=== PATIENT | male | born 1970 | race Caucasian/White ===

== ENCOUNTER 2016-10-04 14:23 | Emergency (ER) | payer OTHER ==
[~2016-10-04 14:23] MED LIST: ALBUAER19 INH; ALBUAER9; ALLGUNK PO; SNG10 PO
[2016-10-04 14:28] VITALS: TEMP 37; Ht 182.9 cm
[2016-10-04] MEDS ORDERED: MoRPHine SULFATE 4 MG/ML 1 ML CARP\\VIAL IV STA (15:39)
[2016-10-04] MEDS ORDERED: KETOROLAC TROMETHAMINE 30 MG/ML VIAL IV STA (15:39)
[2016-10-04] MEDS ORDERED: ONDANSETRON INJ 2 MG/ML 2 ML VIAL IV STA (15:39)
--- NOTE | 2016-10-04 15:45 | EMERGENCY ROOM VISIT NOTE ---
History Report prepared by Álvaro: Coni Lopez Under the Supervision of: Dr. Syed Patrick M.D. First contact with patient: 15:32 Chief Complaint: BACK PAIN Stated Complaint: LOWER BACK PAIN, DIFFICULTY BREATHING History of Present Illness The patient is a 45 year old male who presents to the Emergency Room with complaints of persistent left lower back pain that began one week ago. He currently rates his discomfort as a 10/10 in severity. The patient states that last week he was lifting his 100 pound dog when he felt a pop in his back. He denies any fall. The patient states that he sees a chiropractor once a month, noting that he has thrown his back out in the past. He states that he went to see his chiropractor this week to have his back adjusted. The patient states that his pain has been worsening. He states that his pain is worsened with movement and states that it is alleviated with lying still. The patient denies any numbness or weakness, loss of control of his bowel or bladder, chest pain, or chills. The patient notes that he has had a recent cough, has been short of breath, diaphoretic, and a subjective fever. He states that he has a history of asthma and additionally notes that his lungs only have 30% of capacity. The patient states that he has tried taking Aleve without relief of his symptoms. He states that he took one of his 's Morphine pills this morning at 0700. Source of History: patient, spouse/significant other Onset: one week ago Position: back (lower, left) Symptom Intensity: 10/10 Quality: other (pop) Timing: other (persistent) Modifying Factors (Worsening): movement Modifying Factors (Relieving): other (lying flat) Associated Symptoms: + SOB, + cough, + diaphoresis, + fevers, No chest pain , No chills, No numbness, No weakness Review of Systems See HPI for pertinent positives & negatives. A total of 10 systems reviewed and were otherwise negative. Past Medical & Surgical Medical Problems: (1) Anaphylaxis (2) Asthma (3) Hypertension Old medical records were reviewed. Nurse's notes were reviewed and I agree with. Family History Cancer Social History Smoking Status: Never Smoker Alcohol Use: occasionally Drug Use: none Marital Status: Housing Status: lives with family Occupation Status: employed Current/Historical Medications Scheduled Albuterol Inhaler (Ventolin Inhaler), 2 PUFFS INH QID PRN Albuterol Sulfate (Proventil Hfa), PRN Epinephrine (Epipen), 0.3 MG IM UD Fexofenadine Hcl (Aracelis Unknown Dose), 1 TAB PO DAILY Fluticasone Prop/Salmeterol (Advair Diskus 500/50 60 Dose), 1 PUFF INH BID Levofloxacin (Levaquin), 500 MG PO DAILY Lisinopril (Zestril), 10 MG PO DAILY Montelukast (Singulair *), 10 MG PO DAILY Omeprazole (Prilosec), 20 MG PO DAILY Prednisone (Prednisone), 50 MG PO DAILY Tiotropium [place] (Spiriva Handihaler), 1 CAP INH DAILY Scheduled PRN Oxycodone Ir (Roxicodone Ir), 1-2 TAB PO Q4H PRN for Severe Pain Allergies Coded Allergies: Penicillins (Verified Allergy, Unknown, THROAT SWELLS, 10/04/16) Physical Exam Vital Signs Date Time Temp Pulse Resp B/P Pulse Ox O2 Delivery O2 Flow Rate FiO2 10/04/16 18:42 105/70 10/04/16 17:56 109/77 10/04/16 16:06 93 Nasal Cannula 2.0 10/04/16 16:02 79 18 133/87 88 Room Air 10/04/16 14:28 37.0 64 20 124/80 100 Room Air Physical Exam General: Well developed well nourished, non-ill appearing middle aged male, in no acute distress, breathing comfortably on room air. Normal speech. Significant pain when tries to move back, otherwise appears comfortable. HEENT: Normal cephalic atraumatic. Pupils are equal round and reactive to light. Extraocular movements are intact. Oropharynx is pink with moist mucous membranes. No swelling of the mouth lips or tongue. Neck: Supple with a midline trachea. No meningeal signs or stiffness, no JVD or bruits. No Stridor. Chest: Clear to auscultation bilaterally. No wheezes or rhonchi. No increased work of breathing. Heart: regular rate and rhythm. Abdomen: Soft nontender, nondistended without rebound guarding or rigidity. Extremities: No cyanosis clubbing or edema. No calf tenderness or assymetry Spine/Back. Tender along left lower back along SI joint. No CVA tenderness Skin: Good turgor without rashes. Neurologic exam: Normal motor, sensation, and reflexes distally. Cranial nerves two through 12 are intact. Motor and sensation are intact and symmetrical throughout. Medical Decision & Procedures ER Provider Diagnostic Interpretation: X-ray results as stated below per interpretation by me and the radiologist: CHEST ONE VIEW PORTABLE CLINICAL HISTORY: CHEST PAIN dyspnea COMPARISON STUDY: No previous studies for comparison. FINDINGS: Small parenchymal infiltrate medial right base. Lungs otherwise appear clear. Diaphragms smooth. IMPRESSION: Small parenchymal infiltrate medial right base Electronically signed by: Jaun Gonzalez M.D. 10/04/2016 4:17 PM Dictated Date/Time: 10/04/2016 4:17 PM Laboratory Results Test 10/04/16 16:30 Urine Color DK YELLOW Urine Appearance CLOUDY (CLEAR) Urine pH 6.5 (4.5-7.5) Urine Specific [place] 1.025 (1.000-1.030) Urine Protein NEG (NEG) Urine Glucose (UA) NEG (NEG) Urine Ketones NEG (NEG) Urine Occult Blood NEG (NEG) Urine Nitrite NEG (NEG) Urine Bilirubin NEG (NEG) Urine Urobilinogen NEG (NEG) Urine Leukocyte Esterase NEG (NEG) Urine WBC (Auto) 5-10 /hpf (0-5) Urine RBC (Auto) 0-4 /hpf (0-4) Urine Hyaline Casts (Auto) 1-5 /lpf (0-5) Urine Epithelial Cells (Auto) >30 /lpf (0-5) Urine Bacteria (Auto) NEG (NEG) Urine Renal Epithelial Cells /lpf (0-5) Urine Pathogenic Casts /lpf (0) Urine Mucus PRESENT (NONE PRSENT) Laboratory studies as stated above per my review. Medications Administered Medications (Trade) Dose Ordered Sig/Jorgito Route Start Time Stop Time Status Last Admin Dose Admin Ketorolac Tromethamine (Toradol Inj) 30 mg NOW STAT IV 10/04/16 15:39 10/04/16 15:41 DC 10/04/16 15:58 30 MG Morphine Sulfate (MoRPHine SULFATE INJ) 4 mg NOW STAT IV 10/04/16 15:39 10/04/16 15:41 DC 10/04/16 15:58 4 MG Ondansetron HCl (Zofran Inj) 4 mg NOW STAT IV 10/04/16 15:39 10/04/16 15:41 DC 10/04/16 15:58 4 MG Levofloxacin (Levaquin Tab) 500 mg NOW STAT PO 10/04/16 18:17 10/04/16 18:19 DC 10/04/16 18:34 500 MG Prednisone (PredniSONE TAB) 60 mg NOW STAT PO 10/04/16 18:17 10/04/16 18:19 DC 10/04/16 18:35 60 MG Oxycodone HCl (Roxicodone Immediate Rel 5MG Home Pack) 1 homepack UD ONCE PO 10/04/16 18:30 10/04/16 18:31 DC 10/04/16 18:35 1 HOMEPACK ED Course 153: Past medical records reviewed. The patient was evaluated in room A12B, and a complete history and physical examination were performed. 1538: Ordered Zofran Inj 4 mg IV, Morphine Sulfate 4 mg IV, Toradol Inj 30 mg IV. 1816: I reevaluated the patient and he is feeling much better. I discussed the exam findings with him and I discussed the treatment plan. He verbalized complete understanding and agreement. He is ready to go home. Ordered Prednisone 60 mg PO, Levofloxacin 500 mg PO. 1829: Ordered Oxycodone HCl 1 homepack PO. Medical Decision Differentials include, but are not limited to; musculoskeletal back pain, UTI, pneumonia, cauda equina syndrome This patient comes in as described above. He's having low back pain which is worse with movement. This happened after he picked up his dog. There was no direct trauma. He has no numbness weakness or anything to suggest cauda equina syndrome or infection. He does have a history of chronic lung problems and has had a cough but no fever. He looks well on exam except when he tries to move his lateral low back pain. Urinalysis nor do his symptoms suggest UTI or pyelonephritis. Chest x-ray shows a possible infiltrate in the base and given the fact that he's had a cough, I will put him on Levaquin. He's had this before without any problems. He was given IV morphine and IV Zofran as well as IV Toradol while he was here. He is feeling much better was able to ambulate without difficulty. I gave him prednisone 60 mg by mouth here he'll take prednisone for the next couple days 50 mg for 4 days. He will use ibuprofen for pain for breakthrough pain, he can use OxyIR 5 mg was warned that this could make him drowsy and do not take before drinking, driving, working. He should return if: increasing pain, worsening of symptoms, shortness of breath, change in bowel or bladder function, any new problems concerns and was encouraged to follow-up with his regular doctor next 1-2 days for recheck. Impression Primary Impression: Lower back pain Additional Impressions: Muscle spasm Bronchitis Scribe Attestation The scribe's documentation has been prepared under my direction and personally reviewed by me in its entirety. I confirm that the note above accurately reflects all work, treatment, procedures, and medical decision making performed by me. Departure Information Dispostion Home / Self-Care Prescriptions Oxycodone Ir (Roxicodone Ir) 5 Mg Tab 1-2 TAB PO Q4H Y for Severe Pain, #15 TAB Prov: Syed Patrick M.D. 10/04/16 Levofloxacin (Levaquin) 500 Mg Tab 500 MG PO DAILY, #7 TAB Prov: Syed Patrick M.D. 10/04/16 Prednisone (Prednisone) 50 Mg Tab 50 MG PO DAILY, #4 TAB Prov: Syed Patrick M.D. 10/04/16 Referrals Jarred Cota M.D. (PCP) Forms HOME CARE DOCUMENTATION FORM, IMPORTANT VISIT INFORMATION Patient Instructions My [facility] Additional Instructions Rest. Drink plenty of fluids. Use prednisone 50 mg a day for the next 4 days Use Levaquin 500 mg a day for the next 7 daysantibiotic For more severe pain, may use OxyIR 5 mg, one or 2 pills every 4-6 hours as needed OxyIR may make you drowsy- do not take before drinking, driving, working Return if: Increasing pain, worsening of symptoms, fever or chills, change in bowel or bladder function, numbness weakness, any new problems. Problem Qualifiers
[2016-10-04 16:02] VITALS: PULSE 79; O2SAT 88
[2016-10-04 16:06] VITALS: O2SAT 93
--- NOTE | 2016-10-04 16:19 | DIAGNOSTIC IMAGING REPORT ---
CHEST ONE VIEW PORTABLE CLINICAL HISTORY: CHEST PAIN dyspnea COMPARISON STUDY: No previous studies for comparison. FINDINGS: Small parenchymal infiltrate medial right base. Lungs otherwise appear clear. Diaphragms smooth. IMPRESSION: Small parenchymal infiltrate medial right base Electronically signed by: Jaun Gonzalez M.D. 10/04/2016 4:17 PM Dictated Date/Time: 10/04/2016 4:17 PM
[2016-10-04 16:51] LABS: URINE APPEARANCE CLOUDY (CLEAR); URINE COLOR DK YELLOW; URINE EPITHELIAL CELL AUTO >30 /lpf (0-5); URINE NITRITE NEG (NEG); URINE PH 6.5 (4.5-7.5); URINE SPECIFIC GRAVITY 1.025 (1.000-1.030); UROBILINOGEN NEG (NEG)
[2016-10-04 16:56] LABS: MANUAL MICROSCOPIC REQUIRED? NO; REVIEW REQ? YES; URINE BILIRUBIN NEG (NEG)
[2016-10-04 17:22] LABS: URINE MUCUS PRESENT (NONE PRSENT)
[2016-10-04] MEDS ORDERED: LEVOFLOXACIN 500 MG TAB PO STA (18:17)
[2016-10-04] MEDS ORDERED: LEVO-366 PO (18:21)
[2016-10-04] MEDS ORDERED: OXYC1TAB3 PO (18:21)
[2016-10-04] MEDS ORDERED: PRED50TA PO (18:21)
[2016-10-04] MEDS ORDERED: OXYCODONE IR HOME PACK PO ONE (18:30)
[2016-10-04 18:42] VITALS: BP 105/70
--- NOTE | 2016-10-06 14:27 | Pharmacy Progress Note ---
ED Pharmacist Culture FollowUp Date of Service: Oct 06, 2016. Gardnerella growing from urine culture. Not likely true infection. No intervention required. Case discussed with Dr. Talavera.
[2016-11-23] MEDS ORDERED: EPP3/2 IM (12:36)
[2016-11-23] MEDS ORDERED: FEXO1TAB46 PO (19:32)
[2016-11-23] MEDS ORDERED: ALBU18002 INH (19:32)
[2016-11-23] MEDS ORDERED: MONT1TAB3 PO (19:32)
== END 2016-10-04 18:44 | disposition home or self-care (01) ==
LOC: C.EDB 14:25 → C.EDA 18:44
DX: M54.5 Low back pain (principal); M62.830 Muscle spasm of back; J40 Bronchitis, not specified as acute or chronic; J45.909 Unspecified asthma, uncomplicated; I10 Essential (primary) hypertension; Z79.899 Other long term (current) drug therapy; Z88.0 Allergy status to penicillin

== ENCOUNTER 2016-10-07 19:01 | Emergency (ER) | payer OTHER ==
[~2016-10-07] VITALS: Ht 182.9 cm; Wt 89.0 kg
[~2016-10-07 19:01] MED LIST changes: +LEVO-366 PO; +OXYC1TAB3 PO; +PRED50TA PO
[2016-10-07 19:04] VITALS: TEMP 37.4; Ht 182.9 cm; Wt 89.0 kg
[2016-10-07] MEDS ORDERED: PROMETHAZINE HCL INJ 6.25 MG in SODIUM CHLORIDE 0.9% 50ML 50 ML IV STA (19:11)
[2016-10-07] MEDS ORDERED: CYCLOBENZAPRINE HCL 10 MG TAB PO STA (19:11)
[2016-10-07] MEDS ORDERED: MoRPHine SULFATE 10 MG/ML CARP/VIAL IV STA (19:11)
[2016-10-07] MEDS ORDERED: KETOROLAC TROMETHAMINE 30 MG/ML VIAL IV STA (19:11)
[2016-10-07] MEDS ORDERED: SODIUM CHLORIDE 0.9% 500ML 500 ML IV STA (19:11)
[2016-10-07] MEDS ORDERED: ALBUT/IPRATROP 3MG/0.5MG NEB 3 ML VIAL INH STA (19:15)
[2016-10-07] MEDS ORDERED: MoRPHine SULFATE 4 MG/ML 1 ML CARP\\VIAL ONE (19:18)
[2016-10-07] MEDS ORDERED: MoRPHine SULFATE 2 MG/ML CARP ONE (19:19)
[2016-10-07] MEDS ORDERED: PRED10TA PO (19:32)
[2016-10-07 19:46] LABS: BASO % 0.1 %; BASO ABS # 0.01 K/uL (0-0.2); COMPLETE YES; IG% 0.6 %; LYMPH % 9.7 %; MEAN CELL VOLUME 89.6 fL (80-100); MEAN CORPUSCULAR HEMOGLOBIN 30.1 pg (25-34); MEAN CORPUSCULAR HGB CONC 33.6 g/dl (32-36); MONO % 4.5 %; NEUT % 85.1 %; PLATELET COUNT 331 K/uL (130-400); RED BLOOD COUNT 4.91 M/uL (4.7-6.1); WHITE BLOOD COUNT 10.31 K/uL (4.8-10.8)
--- NOTE | 2016-10-07 19:50 | EMERGENCY ROOM VISIT NOTE ---
History Report prepared by Álvaro: Trent Tariq Under the Supervision of: Dr. Suleiman Cesar M.D. First contact with patient: 19:07 Chief Complaint: BACK PAIN Stated Complaint: BACK PAIN History of Present Illness The patient is a 45 year old male who presents to the Emergency Room with complaints of persistent lower back pain starting a few weeks ago. He describes it to be a tightness. He has worsening pain with movement and bending over. He was doing some heavy lifting when he had the onset of his pain. He had some relief after he had some work performed at the chiropractor's office. He was evaluated in the Emergency Room 3 days ago for similar complaints. He was diagnosed with muscle spasms and pneumonia. The patient was discharged home. He has been taking Prednisone and Levaquin as prescribed. He has been taking Oxycodone without relief in his back pain. He denies any recent falls, urinary symptoms, numbness, tingling, or any other complaints. Source of History: patient Onset: a few weeks ago Position: back (lower) Quality: other (tightness) Timing: other (persistent) Modifying Factors (Worsening): movement, other (bending over) Modifying Factors (Relieving): other (Oxycodone without relief) Associated Symptoms: No numbness, No urinary symptoms Review of Systems See HPI for pertinent positives & negatives. A total of 10 systems reviewed and were otherwise negative. Past Medical & Surgical Medical Problems: (1) Anaphylaxis (2) Asthma (3) Hypertension Family History Cancer Social History Smoking Status: Never Smoker Alcohol Use: occasionally Drug Use: none Marital Status: Housing Status: lives with family Occupation Status: employed Current/Historical Medications Scheduled Albuterol Sulfate (Proair [place]), 2 PUFFS INH QID Fexofenadine Hcl (Aracelis), 180 MG PO HS Fluticasone Prop/Salmeterol (Advair Diskus 500/50 60 Dose), 1 PUFF INH BID Levofloxacin (Levaquin), 500 MG PO DAILY Lisinopril (Zestril), 10 MG PO DAILY Montelukast Sodium (Singulair), 10 MG PO HS Omeprazole (Prilosec), 20 MG PO DAILY Prednisone (Prednisone), 50 MG PO DAILY Prednisone Tab (Prednisone), 10 MG PO DAILY Tiotropium [place] (Spiriva Handihaler), 1 CAP INH DAILY Scheduled PRN Cyclobenzaprine Hcl (Flexeril), 10 MG PO TID PRN for Muscle Spasms Epinephrine (Epipen), 0.3 MG IM UD PRN for ALLERGIC REACTION Oxycodone Ir (Roxicodone Ir), 1-2 TAB PO Q4H PRN for Pain Allergies Coded Allergies: Chicken Meat (Verified Allergy, Severe, ANAPHYLAXIS, 10/07/16) Penicillins (Verified Allergy, Unknown, THROAT SWELLS, 10/04/16) Uncoded Allergies: TURKEY (Allergy, Severe, ANAPHYLAXIS, 10/07/16) Physical Exam Vital Signs Date Time Temp Pulse Resp B/P Pulse Ox O2 Delivery O2 Flow Rate FiO2 10/07/16 19:04 37.4 88 18 128/85 99 Room Air Physical Exam GENERAL: Patient is in no acute distress. HEENT: No acute trauma, normocephalic atraumatic, mucous membranes moist, no nasal congestion, no scleral icterus. NECK: No stridor, no adenopathy, no meningismus, trachea is midline. LUNGS: Decreased breath sounds bilaterally with scattered wheezes bilaterally, equal breath sounds, no crackles. HEART: Without murmurs gallops or rubs, regular rate and rhythm. ABDOMEN: Soft, nontender, bowel sounds positive, no hernias, no peritonitis. BACK: Tenderness in the area of the left lumbar musculature--muscles on the left seem to have spasm, no midline or bony step off, pain worsens with movement. EXTREMITIES: No cyanosis or edema, full range of motion of all the joints without pain or difficulty, no signs for acute trauma. NEUROLOGIC: Oriented x 3, no acute motor or sensory deficits, no focal weakness. SKIN: No rash, no jaundice, no diaphoresis. Medical Decision & Procedures ER Provider Diagnostic Interpretation: CT results as stated below per my review and radiologist interpretation: LUMBAR SPINE CT CT DOSE: 613.71 mGy.cm HISTORY: lower back pain TECHNIQUE: Multiaxial CT images of the lumbar spine were performed and reformatted in the sagittal and coronal plane without the use of contrast. COMPARISON: None. FINDINGS: Moderate to severe anterior wedge-shaped compression fracture within the L1 vertebral body. This demonstrates up to 75% loss of height centrally. No significant retropulsion. Anterior protrusion of the anterior cortex measures up to 5 mm. This abuts the adjacent IVC. This may be acute to subacute due to the mild paravertebral edema. There is also a mild to moderate superior endplate compression fracture at L4 demonstrating up to 40% loss of height anteriorly. No associated paravertebral edema. Therefore, this favors an old fracture. No associated retropulsion. The sacrum appears intact. Disc spaces are preserved. Mild facet degenerative changes seen within the mid to lower lumbar spine. Moderate central canal narrowing at L3-L4 and L4-L5 due to the disc bulge and facet hypertrophy. IMPRESSION: 1. Moderate to severe anterior wedge-shaped compression fracture at L1 which is likely acute to subacute. No associated retropulsion. 2. Mild to moderate superior endplate compression fracture at L4 which is likely old. 3. Degenerative changes as described above. Electronically signed by: Jett Borrero M.D. 10/07/2016 8:26 PM Dictated Date/Time: 10/07/2016 8:19 PM Laboratory Results 10/07/16 19:30 Red Blood Count 4.91, Mean Corpuscular Volume 89.6, Mean Corpuscular Hemoglobin 30.1, Mean Corpuscular Hemoglobin Concent 33.6, Mean Platelet Volume 9.0, Neutrophils (%) (Auto) 85.1, Lymphocytes (%) (Auto) 9.7, Monocytes (%) (Auto) 4.5, Eosinophils (%) (Auto) 0.0, Basophils (%) (Auto) 0.1, Neutrophils # (Auto) 8.78, Lymphocytes # (Auto) 1.00, Monocytes # (Auto) 0.46, Eosinophils # (Auto) 0.00, Basophils # (Auto) 0.01 10/07/16 19:30 Test 10/07/16 19:30 White Blood Count 10.31 K/uL (4.8-10.8) Red Blood Count 4.91 M/uL (4.7-6.1) Hemoglobin 14.8 g/dL (14.0-18.0) Hematocrit 44.0 % (42-52) Mean Corpuscular Volume 89.6 fL (80-100) Mean Corpuscular Hemoglobin 30.1 pg (25-34) Mean Corpuscular Hemoglobin Concent 33.6 g/dl (32-36) Platelet Count 331 K/uL (130-400) Mean Platelet Volume 9.0 fL (7.4-10.4) Neutrophils (%) (Auto) 85.1 % Lymphocytes (%) (Auto) 9.7 % Monocytes (%) (Auto) 4.5 % Eosinophils (%) (Auto) 0.0 % Basophils (%) (Auto) 0.1 % Neutrophils # (Auto) 8.78 K/uL (1.4-6.5) Lymphocytes # (Auto) 1.00 K/uL (1.2-3.4) Monocytes # (Auto) 0.46 K/uL (0.11-0.59) Eosinophils # (Auto) 0.00 K/uL (0-0.5) Basophils # (Auto) 0.01 K/uL (0-0.2) RDW Standard Deviation 43.3 fL (36.4-46.3) RDW Coefficient of Variation 13.2 % (11.5-14.5) Immature Granulocyte % (Auto) 0.6 % Immature Granulocyte # (Auto) 0.06 K/uL (0.00-0.02) Anion Gap 9.0 mmol/L (3-11) Est Creatinine Clear Calc Drug Dose 128.5 ml/min Estimated GFR () 124.6 Estimated GFR (Non- 107.5 BUN/Creatinine Ratio 22.1 (10-20) Calcium Level 9.1 mg/dl (8.5-10.1) Laboratory results reviewed by me. Medications Administered Medications (Trade) Dose Ordered Sig/Jorgito Route Start Time Stop Time Status Last Admin Dose Admin Cyclobenzaprine HCl 10 mg 10 mg NOW STAT PO 10/07/16 19:11 10/07/16 19:15 DC 10/07/16 19:45 10 MG Sodium Chloride (Nss 500ml) 500 ml @ 999 mls/hr Q31M STAT IV 10/07/16 19:11 10/07/16 19:41 DC 10/07/16 19:45 999 MLS/HR Ketorolac Tromethamine 30 mg 30 mg NOW STAT IV 10/07/16 19:11 10/07/16 19:15 DC 10/07/16 19:45 30 MG Promethazine HCl/ Sodium Chloride (Phenergan Inj/ Nss 50ml) 50.25 ml @ 204 mls/hr NOW STAT IV 10/07/16 19:11 10/07/16 19:25 DC 10/07/16 19:45 204 MLS/HR Albuterol/ Ipratropium (Duoneb) 3 ml NOW STAT INH 10/07/16 19:15 10/07/16 19:16 DC 10/07/16 19:15 3 ML Morphine Sulfate (MoRPHine SULFATE INJ) 4 mg STK-MED ONCE .ROUTE 10/07/16 19:18 10/07/16 19:21 DC 10/07/16 19:44 4 MG Morphine Sulfate (MoRPHine SULFATE INJ) 2 mg STK-MED ONCE .ROUTE 10/07/16 19:19 10/07/16 19:21 DC 10/07/16 19:44 2 MG ED Course 1906: The patient was evaluated in room B10. A complete history and physical exam was performed. 1910: Promethazine HCl 6.25 mg/Sodium Chloride 50.25 ml @ 204 mls/hr IV, Toradol Inj 30 mg IV, Morphine Sulfate 6 mg IV, Sodium Chloride 500 ml @ 999 mls /hr IV, Flexeril Tab 10 mg PO 1914: DuoNeb 3 ml INH 2041: Reevaluated the patient. Discussed results and offered him a hospital stay. The patient wants to be discharged home. I discussed discharge instructions: He verbalized understanding and agreement. The patient is ready for discharge. 2044: Oxycodone HCl 1 homepack PO Medical Decision Differential diagnosis includes but is not limited to lumbar fracture, lumbar strain, herniated lumbar disc, nerve impingement, sciatica, renal colic, acute on chronic back pain. There is no leukocytosis or concerning anemia. No significant electrolyte abnormality or kidney failure. The patient is not febrile or toxic in appearance. Lumbar spine CT shows an L1 compression fracture which is acute. This is likely responsible for his severe pain. There is no retropulsion. Patient received IV Toradol, IV Phenergan, IV saline, IV morphine. He was given oral Flexeril. Because of his wheezing, he received a DuoNeb. I talked to the patient about options, he does not want to stay in the hospital. He is being discharged with an outpatient back specialist referral. He will call in the morning for an appointment. The patient was prescribed oxycodone for pain control. He was encouraged to use a stool softener to prevent constipation. The patient can use Motrin or Tylenol for additional pain control. He will be on Flexeril for muscle relaxation. Heat, rest, avoidance of lifting was suggested. If things are worsening, he can return. [place] Drug Monitoring Program Search Results: patient reviewed within database Impression Primary Impression: Compression fracture of L1 lumbar vertebra Additional Impression: Lower back pain Scribe Attestation The scribe's documentation has been prepared under my direction and personally reviewed by me in its entirety. I confirm that the note above accurately reflects all work, treatment, procedures, and medical decision making performed by me. Departure Information Dispostion Home / Self-Care Prescriptions Cyclobenzaprine Hcl (FLEXERIL) 10 Mg Tab 10 MG PO TID Y for Muscle Spasms, #21 TAB Prov: Suleiman Cesar M.D. 10/07/16 Oxycodone Ir (Roxicodone Ir) 5 Mg Tab 1-2 TAB PO Q4H Y for Pain, #20 TAB Prov: Suleiman Cesar M.D. 10/07/16 Referrals Jarred Cota M.D. (PCP) Forms HOME CARE DOCUMENTATION FORM, IMPORTANT VISIT INFORMATION Patient Instructions [facility] Additional Instructions oxy ir 1-2 tab every 4 hours for pain flexeril for muscle spasm otc motrin or tylenol may help heat may help rest no lifting call and set up back specialist appt--call in the am return if worsening you have an L1 compression fracture by CT scan Problem Qualifiers
[2016-10-07 20:08] LABS: BUN/CREATININE RATIO 22.1 (10-20); CALCIUM 9.1 mg/dl (8.5-10.1); CREATININE 0.78 mg/dl (0.60-1.40); POTASSIUM 4.1 mmol/L (3.5-5.1)
--- NOTE | 2016-10-07 20:27 | DIAGNOSTIC IMAGING REPORT ---
LUMBAR SPINE CT CT DOSE: 613.71 mGy.cm HISTORY: lower back pain TECHNIQUE: Multiaxial CT images of the lumbar spine were performed and reformatted in the sagittal and coronal plane without the use of contrast. COMPARISON: None. FINDINGS: Moderate to severe anterior wedge-shaped compression fracture within the L1 vertebral body. This demonstrates up to 75% loss of height centrally. No significant retropulsion. Anterior protrusion of the anterior cortex measures up to 5 mm. This abuts the adjacent IVC. This may be acute to subacute due to the mild paravertebral edema. There is also a mild to moderate superior endplate compression fracture at L4 demonstrating up to 40% loss of height anteriorly. No associated paravertebral edema. Therefore, this favors an old fracture. No associated retropulsion. The sacrum appears intact. Disc spaces are preserved. Mild facet degenerative changes seen within the mid to lower lumbar spine. Moderate central canal narrowing at L3-L4 and L4-L5 due to the disc bulge and facet hypertrophy. IMPRESSION: 1. Moderate to severe anterior wedge-shaped compression fracture at L1 which is likely acute to subacute. No associated retropulsion. 2. Mild to moderate superior endplate compression fracture at L4 which is likely old. 3. Degenerative changes as described above. Electronically signed by: Jett Borrero M.D. 10/07/2016 8:26 PM Dictated Date/Time: 10/07/2016 8:19 PM
[2016-10-07] MEDS ORDERED: OXYCODONE IR HOME PACK PO ONE (20:45)
[2016-10-07] MEDS ORDERED: OXYC1TAB3 PO (20:50)
[2016-10-07] MEDS ORDERED: CYCL10TA6 PO (20:50)
[2016-10-07 21:01] VITALS: BP 119/78; PULSE 64; O2SAT 91
[2016-11-23] MEDS ORDERED: EPP3/2 IM (12:36)
[2016-11-23] MEDS ORDERED: FEXO1TAB46 PO (19:32)
[2016-11-23] MEDS ORDERED: MONT1TAB3 PO (19:32)
[2016-11-23] MEDS ORDERED: ALBU18002 INH (19:32)
== END 2016-10-07 21:09 | disposition home or self-care (01) ==
LOC: C.EDB 19:01
DX: S32.050A Wedge compression fracture of fifth lumbar vertebra, initial encounter for closed fracture (principal); X50.0XXA Overexertion from strenuous movement or load, initial encounter; M62.830 Muscle spasm of back; J45.909 Unspecified asthma, uncomplicated; I10 Essential (primary) hypertension; Z91.018 Allergy to other foods; Z88.0 Allergy status to penicillin

== ENCOUNTER 2016-11-23 21:52 | Emergency (ER) | payer OTHER ==
[~2016-11-23] VITALS: Ht 182.9 cm; Wt 88.5 kg
[~2016-11-23 21:52] MED LIST changes: +ALBU18002 INH; -ALBUAER19 INH; -ALBUAER9; -ALLGUNK PO; +EPP3/2 IM; +FEXO1TAB46 PO; +MONT1TAB3 PO; +PRED10TA PO; -SNG10 PO
[2016-11-23 21:59] VITALS: TEMP 36.9; Ht 182.9 cm; Wt 88.5 kg
[2016-11-23] MEDS ORDERED: ONDANSETRON INJ 2 MG/ML 2 ML VIAL IV STA (22:07)
[2016-11-23] MEDS ORDERED: MoRPHine SULFATE 4 MG/ML 1 ML CARP\\VIAL IV STA ×2 (22:07→23:37)
[2016-11-23] MEDS ORDERED: PRED10TA PO (22:35)
[2016-11-23] MEDS ORDERED: ACET-1256 PO (22:36)
[2016-11-23 22:43] LABS: BASO % 0.6 %; BASO ABS # 0.05 K/uL (0-0.2); COMPLETE YES; EOS % 1.5 %; HEMATOCRIT 41.1 % (42-52); IG% 0.4 %; LYMPH % 45.6 %; LYMPH ABS # 3.85 K/uL (1.2-3.4); MEAN CORPUSCULAR HEMOGLOBIN 29.6 pg (25-34); MEAN CORPUSCULAR HGB CONC 33.6 g/dl (32-36); MEAN PLATELET VOLUME 8.9 fL (7.4-10.4); MONO % 7.5 %; NEUT % 44.4 %; PLATELET COUNT 172 K/uL (130-400); RED BLOOD COUNT 4.67 M/uL (4.7-6.1); WHITE BLOOD COUNT 8.44 K/uL (4.8-10.8)
[2016-11-23] MEDS ORDERED: ADVIN50/60 INH (22:43)
[2016-11-23] MEDS ORDERED: SPRIN/30 INH (22:43)
[2016-11-23] MEDS ORDERED: OMEP20CA59 PO (22:43)
[2016-11-23] MEDS ORDERED: LISI-461 PO (22:43)
[2016-11-23 22:59] VITALS: O2SAT 93
[2016-11-23 22:59] LABS: ALT/SGPT 29 U/L (12-78); BLOOD UREA NITROGEN 15 mg/dl (7-18); BUN/CREATININE RATIO 13.3 (10-20); CARBON DIOXIDE 21 mmol/L (21-32); CHLORIDE 103 mmol/L (98-107); GLUCOSE 94 mg/dl (70-99); POTASSIUM 3.1 mmol/L (3.5-5.1); SODIUM 139 mmol/L (136-145)
[2016-11-23 23:04] LABS: ALKALINE PHOSPHATASE 105 U/L (45-117); AST/SGOT 16 U/L (15-37)
[2016-11-23] MEDS ORDERED: POTASSIUM CHLORIDE 10 MEQ TABCR PO STA (23:39)
[2016-11-24] MEDS ORDERED: OXYC1TAB3 PO (01:25)
[2016-11-24] MEDS ORDERED: OXYCODONE IR HOME PACK PO ONE (01:30)
[2016-11-24 01:50] VITALS: BP 151/94; PULSE 72; O2SAT 95
--- NOTE | 2016-11-24 04:05 | EMERGENCY ROOM VISIT NOTE ---
History First contact with patient: 22:03 Chief Complaint: FLANK PAIN Stated Complaint: LEFT SIDE PAIN History of Present Illness The patient is a 45 year old male who presents to the Emergency Room with complaints of left lateral chest pain for the past 3 days after he injured himself while working on the car when he rolled over on a metal piece of equipment. Patient states since then he had increasing pain to the left lateral chest wall that is worse with movement and breathing. Nothing makes it better. Currently 8 out of 10. He tried Motrin with no improvement of symptoms. Patient denies fever, productive cough, abdominal pain, back pain, numbness, tingling, rash. He is tolerated by mouth fluids and food. No prior known rib fracture to this area. Review of Systems See HPI for pertinent positives & negatives. A total of 10 systems reviewed and were otherwise negative. Past Medical/Surgical History Medical Problems: (1) Anaphylaxis (2) Asthma (3) Hypertension Family History Cancer Social History Smoking Status: Never Smoker Alcohol Use: occasionally Drug Use: none Marital Status: Housing Status: lives with family Occupation Status: employed Current/Historical Medications Scheduled Albuterol Sulfate (Proair Respiclick), 2 PUFFS INH QID Fexofenadine Hcl (Aracelis), 180 MG PO HS Fluticasone Prop/Salmeterol (Advair Diskus 500/50 60 Dose), 1 PUFF INH BID Lisinopril (Zestril), 10 MG PO DAILY Montelukast Sodium (Singulair), 10 MG PO HS Omeprazole (Prilosec), 20 MG PO DAILY Prednisone Tab (Prednisone), 10 MG PO DAILY Tiotropium [place] (Spiriva Handihaler), 1 CAP INH DAILY Scheduled PRN Acetaminophen (Tylenol), 1,000 MG PO Q6H PRN for Pain or Fever Epinephrine (Epipen), 0.3 MG IM UD PRN for ALLERGIC REACTION Oxycodone Immediate Rel Tab (Roxicodone Ir), 1-2 TAB PO Q4H PRN for Severe Pain Allergies Coded Allergies: Chicken Meat (Verified Allergy, Severe, ANAPHYLAXIS, 10/07/16) Penicillins (Verified Allergy, Unknown, THROAT SWELLS, 10/04/16) Uncoded Allergies: TURKEY (Allergy, Severe, ANAPHYLAXIS, 10/07/16) Physical Exam Vital Signs Date Time Temp Pulse Resp B/P Pulse Ox O2 Delivery O2 Flow Rate FiO2 11/24/16 01:50 72 18 151/94 95 11/24/16 01:05 73 94 11/24/16 01:00 136/91 11/24/16 00:52 71 92 11/24/16 00:30 143/103 11/24/16 00:22 75 93 11/24/16 00:07 145/94 11/23/16 23:54 77 15 129/92 93 Room Air 11/23/16 23:52 78 14 129/92 95 11/23/16 23:00 130/87 11/23/16 22:59 93 Room Air 11/23/16 22:52 85 21 93 11/23/16 22:46 92 11/23/16 22:41 132/81 11/23/16 21:59 36.9 90 18 136/82 94 Room Air Pain Rating (0-10): 2.0 Physical Exam VITALS: Vitals are noted on the nurse's note and reviewed by myself. Vital signs stable. GENERAL: Pleasant male, in no acute distress, nondiaphoretic, well-developed well-nourished. SKIN: The skin was without rashes, erythema, edema, or bruising. There is no tenting of the skin. Capillary reflex less than 2 seconds. HEAD: Normocephalic atraumatic. EARS: External auditory canals clear, tympanic membranes pearly laws without erythema or effusion bilaterally. EYES: Pupils equal round and reactive to light and accommodation. Conjunctivae without injection, sclerae without icterus. Extraocular movements intact. NOSE: Patent, turbinates without inflammation or discharge. MOUTH: Mucous membranes moist. Pharynx without erythema or exudate. Uvula midline. Airway patent. Tongue does not deviate. NECK: Supple without nuchal rigidity. No lymphadenopathy. No thyromegaly. Cervical spine is nontender. No JVD. HEART: Regular rate and rhythm without murmurs gallops or rubs. Left lateral chest wall tender to palpation easily reproducing symptoms over ribs 8 9 and 10 LUNGS: Clear to auscultation bilaterally without wheezes, rales or rhonchi. No dullness to percussion. No retractions or accessory muscle use. ABDOMEN: Positive bowel sounds x 4. Normal tympanic percussion. Soft, nontender, without masses or organomegaly. Pat sign negative. No guarding or rebound tenderness. MUSCULOSKELETAL: No muscle atrophy, erythema, or edema noted. NEURO: Patient was alert and oriented to person place and time. Normal sensation to light and sharp touch. No focal neurological deficits. Medical Decision & Procedures Laboratory Results 11/23/16 22:25 Red Blood Count 4.67, Mean Corpuscular Volume 88.0, Mean Corpuscular Hemoglobin 29.6, Mean Corpuscular Hemoglobin Concent 33.6, Mean Platelet Volume 8.9, Neutrophils (%) (Auto) 44.4, Lymphocytes (%) (Auto) 45.6, Monocytes (%) (Auto) 7.5, Eosinophils (%) (Auto) 1.5, Basophils (%) (Auto) 0.6, Neutrophils # (Auto) 3.75, Lymphocytes # (Auto) 3.85, Monocytes # (Auto) 0.63, Eosinophils # (Auto) 0.13, Basophils # (Auto) 0.05 11/23/16 22:25 Test 11/23/16 22:25 White Blood Count 8.44 K/uL (4.8-10.8) Red Blood Count 4.67 M/uL (4.7-6.1) Hemoglobin 13.8 g/dL (14.0-18.0) Hematocrit 41.1 % (42-52) Mean Corpuscular Volume 88.0 fL (80-100) Mean Corpuscular Hemoglobin 29.6 pg (25-34) Mean Corpuscular Hemoglobin Concent 33.6 g/dl (32-36) Platelet Count 172 K/uL (130-400) Mean Platelet Volume 8.9 fL (7.4-10.4) Neutrophils (%) (Auto) 44.4 % Lymphocytes (%) (Auto) 45.6 % Monocytes (%) (Auto) 7.5 % Eosinophils (%) (Auto) 1.5 % Basophils (%) (Auto) 0.6 % Neutrophils # (Auto) 3.75 K/uL (1.4-6.5) Lymphocytes # (Auto) 3.85 K/uL (1.2-3.4) Monocytes # (Auto) 0.63 K/uL (0.11-0.59) Eosinophils # (Auto) 0.13 K/uL (0-0.5) Basophils # (Auto) 0.05 K/uL (0-0.2) RDW Standard Deviation 45.9 fL (36.4-46.3) RDW Coefficient of Variation 14.4 % (11.5-14.5) Immature Granulocyte % (Auto) 0.4 % Immature Granulocyte # (Auto) 0.03 K/uL (0.00-0.02) Anion Gap 15.0 mmol/L (3-11) Est Creatinine Clear Calc Drug Dose 91.1 ml/min Estimated GFR () 92.2 Estimated GFR (Non- 79.5 BUN/Creatinine Ratio 13.3 (10-20) Calcium Level 8.0 mg/dl (8.5-10.1) Total Bilirubin 0.3 mg/dl (0.2-1) Direct Bilirubin < 0.1 mg/dl (0-0.2) Aspartate Amino Transf (AST/SGOT) 16 U/L (15-37) Alanine Aminotransferase (ALT/SGPT) 29 U/L (12-78) Alkaline Phosphatase 105 U/L (45-117) Troponin I < 0.015 ng/ml (0-0.045) Total Protein 7.0 gm/dl (6.4-8.2) Albumin 3.7 gm/dl (3.4-5.0) Lipase 158 U/L (73-393) Medications Administered Medications (Trade) Dose Ordered Sig/Jorgito Route Start Time Stop Time Status Last Admin Dose Admin Morphine Sulfate (MoRPHine SULFATE INJ) 4 mg NOW STAT IV 11/23/16 22:07 11/23/16 22:13 DC 11/23/16 22:39 4 MG Ondansetron HCl (Zofran Inj) 4 mg NOW STAT IV 11/23/16 22:07 11/23/16 22:13 DC 11/23/16 22:39 4 MG Morphine Sulfate (MoRPHine SULFATE INJ) 4 mg NOW STAT IV 11/23/16 23:37 11/23/16 23:38 DC 11/23/16 23:52 4 MG Potassium Chloride (Klor-Con M10) 40 meq NOW STAT PO 11/23/16 23:39 11/23/16 23:40 DC 11/23/16 23:52 40 MEQ Oxycodone HCl (Roxicodone Immediate Rel 5MG Home Pack) 1 homepack UD ONCE PO 11/24/16 01:30 11/24/16 01:31 DC 11/24/16 01:46 1 [facility] ED Course Prior records/ancillary studies reviewed. Triage Nursing notes reviewed. Additional history obtained from family The patient's history was concerning for left lateral chest wall pain. Differential diagnosis: Etiologies such as rib fracture, contusion, pneumothorax, cardiac ischemia, aortic dissection, pulmonary embolism, pneumonia, pneumothorax, musculoskeletal , infections, pericarditis, myocarditis, esophageal rupture, gastrointestinal, as well as others were entertained. Physical examination: As above. ER treatment provided: Morphine On reassessment the patient felt better. Diagnostic interpretation by me: The electrocardiogram was negative for pathologic change. Normal sinus, normal intervals, no acute ST-T wave changes. Impression normal sinus rhythm interpreted by myself The labs revealed negative troponin Imaging studies: CT CHEST Without Contrast: There is a previous study from 05/08/12. There was some motion on the prior exam limiting comparison. Suspect some old rib fractures example right anterior ribs. There is no acute displaced rib fractures seen. Difficult to exclude subtle nondisplaced fracture though favor exam negative for acute rib fracture. Correlate with point tenderness. Only axial images presented. The does appear to be some interval compression deformities of the spine. Some these could represent Schmorl's nodes, example T7 superior endplate. Others have the appearance of mild compression deformity example T11 superior endplate though may be chronic. No retropulsion. No pneumothorax. Evaluation limited without contrast. No effusions. Suspected atelectasis. Radiologist: Moises Johnson M.D. Exam and history seem consistent with chest wall injury that could be a rib fracture present. Patient symptoms are easily reproducible on clinical exam. He felt much better to be medicated as above. He was advised to do incentive spirometry for the next 2 weeks and to follow-up family care in a few days or here in the ER sooner for severe pain, fevers, difficulty breathing, worsening signs or symptoms or as needed.By the evaluation outlined above emergent etiologies such as cardiac ischemia, aortic dissection, pulmonary embolism, pneumonia, pneumothorax, infections, pericarditis, myocarditis, gastrointestinal , as well as others were deemed relatively unlikely. The pt informed about the findings as listed above. All questions were answered and pleased with the treatment. Return instructions were outlined and the patient was discharged in stable condition. Outpatient prescription management: OxyIR Referral: The patient was referred back to primary care physician for follow-up in 2 to 3 days for a recheck of the current condition. Case reviewed with my attending Medical Decision as above [place] Drug Monitoring Program Search Results: patient reviewed within database, no issues identified Impression Primary Impression: Rib pain on left side Departure Information Dispostion Home / Self-Care Condition FAIR Prescriptions Oxycodone Immediate Rel Tab (ROXICODONE IR) 5 Mg Tab 1-2 TAB PO Q4H Y for Severe Pain, #15 TAB Prov: Mari Fong ., NICOLLE 11/24/16 Forms HOME CARE DOCUMENTATION FORM, IMPORTANT VISIT INFORMATION Patient Instructions Fx Rib, My [facility], ED Contusion Rib Additional Instructions Incentive spirometry 10 times an hour for next 2 weeks while you are awake. DO NOT drive, drink alcohol, operate machinery, or perform dangerous activities today. You were given medications in the ER that can affect your ability to safely function or operate a vehicle. Oxycodone (OxyIR) 5mg: Take 1-2 pills every four hours for breakthrough pain. Avoid alcohol, operating machinery or dangerous equipment, working on ladders or roofs, DRIVING, or situations where being under the influence may be dangerous. It is recommended to use an mriq-coy-prmtmic stool softener such as Colace, 100mg twice daily while taking this medication to avoid constipation. Ibuprofen(Motrin, Advil) may be used for fever or pain. Use 600mg every six hours as needed. Take with food. Avoid using more than 2400mg in a 24 hour period. Do not use 2400mg per day for more than three consecutive days without physician direction. Prolonged inappropriate use can lead to stomach upset or ulcers. (AND/OR) Acetaminophen(Tylenol) may be used for fever or pain. Use 1000mg every six hours as needed. Avoid using more than 3000mg in a 24 hour period. Rest and drink plenty of fluids as tolerated. Continue current medications. Avoid strenuous activities and anything that worsens your pain. Resume normal activities once your symptoms resolve. Return to the ER immediately for worsening or persistent chest pain, abdominal pain, vomiting, fevers, chest pains, difficulty breathing, worsening of your condition, or as needed. Follow up with your primary physician in 2-3 days for a recheck of your current condition.
--- NOTE | 2016-11-24 06:53 | DIAGNOSTIC IMAGING REPORT ---
LEFT RIBS UNILATERAL WITH PA CHEST CLINICAL HISTORY: Left lower lateral rib pain. COMPARISON STUDY: Chest radiograph October 04, 2016. FINDINGS: There is no pneumothorax or pleural effusion. Lung volumes are normal. Mild left basilar opacity favors atelectasis. There is no consolidation or evidence of pulmonary edema. Cardiomediastinal silhouette is normal. There is a stable T1 compression fracture since exam of October 07, 2016. No acute left rib fracture is identified. IMPRESSION: No pneumothorax. No acute left rib fracture identified. Electronically signed by: Alf French M.D. 11/24/2016 6:51 AM Dictated Date/Time: 11/24/2016 6:48 AM
--- NOTE | 2016-11-24 07:49 | DIAGNOSTIC IMAGING REPORT ---
CT SCAN OF THE CHEST WITHOUT IV CONTRAST CLINICAL HISTORY: Fall. Left chest wall pain. COMPARISON STUDY: Chest x-ray dated 10/04/2016. Chest CT dated 05/08/2012. TECHNIQUE: CT scan of the thorax was performed from the thoracic inlet to the upper abdomen. Images are reviewed in the axial, sagittal, and coronal planes. IV contrast was not administered for this examination as per the referring clinician. CT DOSE: 344.89 mGy.cm FINDINGS: Thyroid: Imaged portions of the thyroid gland are normal in size and attenuation. Thoracic aorta: The thoracic aorta is normal in caliber and demonstrates standard 3-vessel arch anatomy. Heart: The heart is normal in size and without pericardial effusion. Lungs and pleural spaces: There is no airspace consolidation typical for pneumonia or pleural effusion. Dependent atelectasis versus scarring is noted. There are scattered calcified granulomas. The trachea and central airways are clear. No pneumothorax is seen. Mediastinum: There is no mediastinal lymphadenopathy. Martine: Not well assessed without IV contrast. Axillae: There is no axillary lymphadenopathy. Upper abdomen: There is a small to moderate hiatal hernia. Partially visualized upper abdominal viscera is otherwise within normal limits. Skeletal structures: No lytic or blastic bony lesions are seen. There are mild superior endplate compression films of T2, T6, T7, and T11. The T11 fracture is age indeterminant but new from 2012. There are healed bilateral rib fractures. These are similar to the 2012 examination. IMPRESSION: 1. There is a mild and age indeterminant superior endplate compression deformity of T11. This is new from 2012. 2. Additional thoracic compression deformities and healed bilateral rib fractures are similar to previous. 3. There is no airspace consolidation, pleural effusion, or pneumothorax. 4. Additional findings as above. Electronically signed by: Suleiman Reece M.D. 11/24/2016 7:47 AM Dictated Date/Time: 11/24/2016 7:33 AM
== END 2016-11-24 01:50 | disposition home or self-care (01) ==
LOC: C.EDB 21:53 → C.EDC 11-24 01:50
DX: R07.81 Pleurodynia (principal); J45.909 Unspecified asthma, uncomplicated; I10 Essential (primary) hypertension